=== PATIENT | male | born 2000 ===

== ENCOUNTER 2023-09-17 20:45 | Emergency (ER) | payer MEDICAID, SELFPAY ==
--- NOTE | ~2023-09-17 | XR_ITS ---
EXAMINATION: XR FINGER, RIGHT CLINICAL INFORMATION: Closed door on the third digit COMPARISON: None available. TECHNIQUE: 3 views of the right third digit FINDINGS: The bones and soft tissues are normal. No fracture. Alignment is anatomic. Joint spaces are maintained. XR/XR finger RT min 2V IMPRESSION: Normal finger radiographs.
[2023-09-17 21:40] VITALS: BP 127/76; PULSE 54; RESP 16; TEMP 36.4; O2SAT 99; BMI 27.4
--- NOTE | 2023-09-18 02:00 | ED.EXTPRO ---
HPI - Extremity Problem General Chief complaint: Extremity Injury, Upper Stated complaint: slammed finger in door, lac Time Seen by Provider: 09/18/23 01:59 Source: patient Mode of arrival: ambulatory Limitations: no limitations History of Present Illness ED Provider: Dr. Abhinav Charles HPI Narrative: 23-year-old male who presents emergency department for evaluation of injury to the 3rd finger of his left hand. Patient states he accidentally closed his finger into the door. The patient sustained a laceration to the tip of his finger involving the nail bed. Related Data Allergies Allergy/AdvReac Type Severity Reaction Status Date / Time No Known Allergies Allergy Verified 09/17/23 21:46 Review of Systems Review of Systems: Yes all other systems are reviewed and are negative PMFSH Social History Social History Advance Directives: No Advance Directives Information Provided: No Do you have a plan to hurt others: No Plan Physical Exam Vital Signs: Vital Signs: Last Vital Signs Temp 97.5 F 09/17/23 21:40 Pulse 54 09/17/23 21:40 Resp 16 09/17/23 21:40 BP 127/76 09/17/23 21:40 Pulse Ox 99 09/17/23 21:40 O2 Del Method Room Air 09/17/23 21:40 BMI result Body Mass Index 27.4 Vital signs were normal Exam: Left 3rd finger: The patient has tenderness palpation of the tip of his finger there is a laceration that goes through the nail bed and the distal part of the nail is partially avulsed. Fingers neurovascularly intact. Medications Administered Discontinued Medications Generic Name Dose Route Start Last Admin Trade Name Freq PRN Reason Stop Dose Admin Ibuprofen 400 mg 09/18/23 02:09 09/18/23 02:48 Ibuprofen 400 Mg Tablet PO 09/18/23 02:10 400 mg ONCE STA Administration Lidocaine HCl 5 ml 09/18/23 02:05 09/18/23 02:47 Lidocaine Hcl 1 % Mpf 5 Ml Vial INFILTRATI 09/18/23 02:06 5 ml ONCE STA Administration Lidocaine HCl 5 ml 09/18/23 02:22 09/18/23 02:47 Lidocaine Hcl 1 % Mpf 5 Ml Vial INFILTRATI 09/18/23 02:23 5 ml ONCE STA Administration Medical Decision Making Medical Decision Making [facility] Narrative: 23-year-old male who presents emergency department for evaluation of crush injury to the tip of his left 3rd finger. Patient a laceration across the tip of his finger that does involve the nailbed and there is partial avulsion of the fingernail. Differential diagnosis: ?Includes but is not limited to laceration to the tip of the finger, crush injury, nail bed injury, distal phalanx fracture Following evaluation was ordered: X-ray left 3rd finger/hand Patient was initially treated with the following: Ibuprofen 400 mg orally Course: 03:05 The x-ray of the right 3rd finger revealed no acute fractures. The laceration was repaired with 5.0 Rapide Vicryl sutures times a total of 6 sutures. Bacitracin was applied and a pressure dressing was applied to the tip of his finger, patient was given printed and verbal instructions and discharged home. Independent Interpretation I performed an independent interpretation of an: Plain X-Ray Interpretation: My interpretation of the patient's right hand x-ray including the right 3rd finger: No acute fracture seen Radiology Impression Discussion of test interpretation with radiology: I have reviewed the radiologist's reading. Radiologist Impression: XR finger RT min 2V IMPRESSION: Normal finger radiographs. Dictated By: Benjie Champion MD Procedures Procedure Narrative Procedure Narrative: 2.0 cm laceration to right 3rd finger involving nail bed I did discuss the repair procedure with the patient he did give me informed verbal consent to proceed. The patient's finger was prepped with Betadine and anesthetized with 10 cc of 1% lidocaine using a digital block. The proximal 3rd of the nail was removed using a scalpel to lift the nail off the nail bed and cut with scissors. The laceration did extend into the nail bed laceration and the skin laceration was repaired with 5.0 Vicryl Rapide sutures x6 sutures. The wound was then covered with bacitracin and a pressure dressing was applied. Patient tolerated the procedure well. Discharge Plan Discharge Clinical Impression: Crushing injury of finger with hand, right, Laceration of finger of right hand Patient Disposition: Home, Self-Care Instructions: Laceration (ED) Additional Instructions: The laceration of your finger was repaired with dissolvable sutures. The suture should involve in 7-10 days. If they are not completely dissolve then you can go to an urgent care clinic, your primary care doctor or the emergency department to have the sutures removed. Apply bacitracin twice a day to the wound. Watch for signs of infection which include increased pain, increased redness, red streaks going away from the wound, drainage of pus from the wound. Take ibuprofen 200 mg pills, 2 pills every 6 hours as needed for pain or fever. Take Tylenol (acetaminophen) 500 mg pills, 2 pills every 6 hours as needed for pain or fever. Follow-up with your doctor in 2 days. Please return to the emergency department if your symptoms get worse or if you develop any symptoms that are concerning to you. Print Language: Swahili
[2023-09-18] MEDS: Lidocaine HCl 1 % MPF 5 ML VIAL INFILTRATI ×2 (02:47)
[2023-09-18] MEDS: Ibuprofen 400 MG TABLET PO (02:48)
[2023-09-18] MEDS: Bacitracin Oint 0.9 GM PACKET 1 APPL TOPICAL (03:13)
[2023-09-18 03:20] VITALS: BP 118/58; PULSE 62; RESP 16; TEMP 37; O2SAT 97
== END 2023-09-18 03:21 | disposition home or self-care (01) ==
PROVIDERS: Emergency Provider Emergency Medicine Emergency Medical Services
DX: S67.192A Crushing injury of right middle finger, initial encounter (principal); S61.312A Laceration without foreign body of right middle finger with damage to nail, initial encounter; W23.0XXA Caught, crushed, jammed, or pinched between moving objects, initial encounter; Y93.9 Activity, unspecified; Y92.9 Unspecified place or not applicable; Y99.9 Unspecified external cause status
CPT/HCPCS: 12001; 73140; 99283; 99284

== ENCOUNTER 2023-11-09 20:49 | Emergency (ER) | payer MEDICAID, SELFPAY ==
--- NOTE | ~2023-11-09 | CT_ITS ---
EXAMINATION: CT ABDOMEN AND PELVIS WITH CONTRAST CLINICAL INFORMATION: Right lower quadrant pain COMPARISON: None available. TECHNIQUE: Multidetector volumetric images were obtained from the superior aspect of the liver through the pubic symphysis following administration 85 mL of Omnipaque 350 intravenous contrast. Sagittal and coronal reformatted images were obtained on the technologist's workstation. Oral contrast: No This CT examination was performed using dose optimization techniques as appropriate, variously including the following: *Automated exposure control *Adjustment of mA and/or kV according to patient size (this includes techniques or standardized protocols for targeted exams where dose is matched to indication/reason for exam; i.e. extremities or head) *Use of iterative reconstruction technique DLP: 379 mGy-cm FINDINGS: No contrast enhancement is seen on this exam. Per technologist note, contrast was injected successfully. LUNG BASES: The visualized lung bases are unremarkable. LIVER, GALLBLADDER, AND BILIARY TREE: The liver is normal in size, shape, and attenuation. No focal hepatic lesion or biliary ductal dilatation is identified on this noncontrast exam. Gallbladder appears somewhat contracted, grossly unremarkable. PANCREAS: Unremarkable. SPLEEN: Unremarkable. ADRENAL GLANDS: Unremarkable. KIDNEYS AND URETERS: No hydronephrosis or obstructing calculus bilaterally. BLADDER: Unremarkable. GASTROINTESTINAL TRACT: No evidence of bowel obstruction or significant wall thickening. Appendix appears somewhat prominent though contains gas, and there are no surrounding inflammatory changes to suggest appendicitis. No free fluid or free air is seen. ABDOMINAL WALL: No significant hernia is appreciated. LYMPH NODES: No lymphadenopathy is seen, though assessment is limited in the absence of intravenous contrast. VASCULAR: Unremarkable. PELVIC VISCERA: Unremarkable. OSSEOUS STRUCTURES: Unremarkable. CT/CT abdomen pelvis w IV con IMPRESSION: 1. Appendix appears prominent though contains gas, and there are no surrounding inflammatory changes to suggest appendicitis. Otherwise, no acute findings identified in the abdomen/pelvis. 2. Of note, no contrast is present on these images, though contrast was reportedly administered for the examination. This could be indicative of contrast infiltration, and clinical correlation with examination of the left upper extremity is recommended. This critical result was discussed with Dr. Lopez on 11/10/2023 2:16 AM, and it was ascertained that the content and urgency of the report was understood at the time of direct communication.
[2023-11-09 20:54] VITALS: BP 125/68; PULSE 59; RESP 18; TEMP 36.6; O2SAT 98; BMI 24.0
--- NOTE | 2023-11-09 21:15 | PC.NURSE ---
After triage patient states that he was seen at a hospital in [place] for similar symptoms and was sent medications which helped his pain for a while, unsure what he was taking. Patient is now out of these medications and has been trying to avoid fatty foods but the [employer] gives fatty foods for meals a lot so this has been difficult and patient is in pain again.
[2023-11-09 21:25] LABS: MANUAL DIFF FLAG NO
[2023-11-09 21:29] LABS: Basophils Percent Auto 0.5 % (0-2); Eosinophils Absolute Auto 0.4 X10*3/uL (0.0-0.4); Eosinophils Percent Auto 5.1 % (0-4); Hematocrit 43.2 % (42.0-52.0); Hemoglobin 14.6 g/dl (14.0-18.0); Imm Gran Abs Auto 0.02 X10*3/uL (0.00-0.03); Imm Gran Pct Auto 0.3 % (0.0-0.4); Lymphocytes Absolute Auto 3.4 X10*3/uL (1.2-4.9); Mean Corpuscular HGB Conc 33.8 g/dl (31.0-36.0); Mean Corpuscular Hemoglobin 28.8 pg (27.0-33.0); Mean Corpuscular Volume 85.2 fL (80.0-98.0); Mean Platelet Volume 9.8 fL (9.4-12.4); Monocytes Absolute Auto 0.4 X10*3/uL (0.1-1.2); Monocytes Percent Auto 5.8 % (2-11); Neutrophils Absolute Auto 3.3 x10*3/uL (2.0-8.3); Neutrophils Percent Auto 43.3 % (45-73); Platelet Count 207 X10*3/uL (160-400); Red Blood Count 5.07 X10*6/uL (4.60-5.80); Red Cell Distribution Width 12.7 % (11.0-16.0); White Blood Count 7.6 X10*3/uL (4.8-10.8)
[2023-11-09 21:44] LABS: Appearance Urine Clear; Color Urine Yellow; Glucose Urine UA Negative (Negative); Leukocyte Esterase Urine Negative (Negative); Nitrite Urine Negative (Negative); PH 7.5 (5.0-9.0); Urine Blood Negative (Negative); Urine Ketones Negative (Negative); Urine Protein Negative (Neg-Trace)
[2023-11-09 21:49] LABS: Bacteria Urine None Seen (None Seen); Hyaline Casts Urine 0-2 /LPF (0-2); RBC Urine 0-2 /HPF (0-2); Squamous Epithelial Cell Urine 0-2 /HPF (0-2); WBC Urine 0-5 /HPF (0-5)
[2023-11-09 21:49] LABS: Alanine Aminotransferase 6 U/L (0-40); Albumin Level 4.7 g/dL (3.5-5.0); Alkaline Phosphatase 48 U/L (39-117); Anion Gap 12 (12-20); Aspartate Amino Transferase 17 U/L (5-37); Bilirubin Direct 0.1 mg/dL (0.0-0.5); Bilirubin Total 0.4 mg/dL (0.0-1.0); Blood Urea Nitrogen 11 mg/dL (9-16); Calcium 9.7 mg/dL (8.4-10.2); Carbon Dioxide 27 mmol/L (22-29); Chloride 107 mmol/L (96-108); Creatinine Clr Calc Pharmacy 104.4; Estimated Glomerular Filt Rate > 60; Glucose Random 87 mg/dL (60-115); Lipase 24 U/L (8-78); Potassium 3.5 mmol/L (3.3-5.1); Sodium 142 mmol/L (135-145)
--- NOTE | 2023-11-09 22:04 | ED.ABDPAIN ---
HPI - Abdominal Pain General Chief Complaint: Abdominal Pain Stated Complaint: rt side pain Time Seen by Provider: 11/09/23 21:38 Source: patient Mode of arrival: ambulatory Limitations: no limitations History of Present Illness ED Provider: Dr. Leena Green HPI narrative: Patient comes to the emergency room complaining of chronic right lower quadrant pain. Patient states it has been happening for about 6 months now. Patient states that now hurts more at night, radiates towards the right lower quadrant. Patient denies any nausea vomiting diarrhea. Patient states the pain is intermittent. Denies fever chills. Patient states that he has not had any injuries to the area. Denies any hematuria or dysuria. Denies history of kidney stones. Patient states that he has noticed that when he eats bread or food with we had, patient has significant abdominal pain and distention. Related Data Previous Rx's ?Medication ?Instructions ?Recorded cyclobenzaprine 5 mg tablet 5 mg PO TID PRN muscle spasm #10 11/10/23 tabs ibuprofen 600 mg tablet 600 mg PO Q8H PRN fever or pain 11/10/23 #14 tabs Allergies Allergy/AdvReac Type Severity Reaction Status Date / Time No Known Allergies Allergy Verified 11/09/23 21:07 Review of Systems Review of Systems Constitutional : No Weight loss, No Fever, No Chills, No Night Sweats, No Fatigue, No Malaise ENT/Mouth : No Hearing loss, No Ear Pain, No Nasal Congestion, No Sinus Pain, No Hoarseness, No sore throat, No Rhinorrhea, No Swallowing Difficulty Eyes: No Eye Pain, No Swelling, No Redness, No Foreign Body, No Discharge, No Vision Changes Cardiovascular : No Chest Pain, No SOB, No Dyspnea on Exertion, No Orthopnea, No Edema, No Palpitations Respiratory : No Cough, No Sputum, No Wheezing, No Smoke Exposure, No Dyspnea Gastrointestinal : No Nausea, No Vomiting, No Diarrhea, No Constipation, complaining of right lower quadrant pain Genitourinary : no irregular bleeding, No Dysuria, No Urinary Frequency, No Hematuria, No Urinary Incontinence, No Urgency, complaining of right-sided Flank Pain, No Urinary Flow Changes, No Hesitancy Musculoskeletal : No joint pain, No Myalgias, No Joint Swelling Skin : No Skin Lesions, No rash Neuro : No Weakness, No Numbness, No Paresthesias, No Loss of Consciousness, No Dizziness, No Headache Psych : No Anxiety/Panic, No Depression, No SI/HI/AH/VH, No Social Issues, Heme/Lymph: No Bruising, No Bleeding,No Lymphadenopathy Endocrine : No Polyuria, No Polydipsia, No Temperature Intolerance [facility] Social History Social History Smoked in Last 30 Days: No Use of substances other than those prescribed or required for medical reasons: No Advance Directives: No Advance Directives Information Provided: No Do you have a plan to hurt others: No Plan Physical Exam ED Vital Signs: Vital Signs - 24 hr 11/09/23 20:54 11/09/23 22:25 11/10/23 00:00 Temperature 98 F 98.1 F 98.0 F Pulse Rate 59 60 61 Respiratory Rate 18 18 18 Blood Pressure 125/68 133/74 122/74 Pulse Oximetry 98 99 98 Oxygen Delivery Method Room Air Room Air Room Air BMI result Body Mass Index 24.0 Const Other: Appearance: Alert. Oriented X3. No acute distress. Eyes: Pupils equal, round and reactive to light. ENT: Pharynx normal. Neck: Normal inspection. Neck supple. No lymph nodes noted. No crepitus CVS: Normal heart rate and rhythm. Pulses normal. Normal S1 and S2 Respiratory: No respiratory distress. Breath sounds normal. No Wheezing. No rales Abdomen: Soft and nontender. No rigidity. No distention. My palpation to right flank Skin: Skin warm and dry. Normal skin color. Normal skin turgor. Extremities: No lower extremity edema. No Lacerations. No Rash Neuro: Oriented X 3. No motor deficit. No sensory deficit. Moving all extremities. No slurred speech. CN 2 through 12 grossly intact Psych: calm, cooperative, normal affect Medical Decision Making Medical Decision Making MDM Narrative: -my interpretation of labs: Normal hematology, no abnormality seen in the chemistry, normal lipase -urine negative for UTI -my interpretation of CT scan of abdomen and pelvis do not show any obvious abnormality. Report pending. -source of pain likely musculoskeletal -given patient's history of abdominal discomfort with food intake with wheat, I discussed with the patient to try a gluten free diet and then follow-up with gastroenterology. Differential Diagnosis Differential Diagnoses: The differential diagnosis associated with the presentation includes (Musculoskeletal pain, appendicitis, kidney stone, celiac disease) Admission/Observation Consideration of admission/observation: Escalation of care including admission/observation considered (Given patient's lack thumb symptoms, admission was considered) Lab Data MDM Lab Attestation statement: I reviewed the patient's lab results. 11/09/23 21:20 11/09/23 21:20 Labs: Lab Results 11/09/23 11/09/23 Range/Units 21:20 21:37 WBC 7.6 (4.8-10.8) X10*3/uL RBC 5.07 (4.60-5.80) X10*6/uL Hgb 14.6 (14.0-18.0) g/dl Hct 43.2 (42.0-52.0) % MCV 85.2 (80.0-98.0) fL MCH 28.8 (27.0-33.0) pg MCHC 33.8 (31.0-36.0) g/dl RDW 12.7 (11.0-16.0) % Plt Count 207 (160-400) X10*3/uL MPV 9.8 (9.4-12.4) fL Immature Gran % (Auto) 0.3 (0.0-0.4) % Neut % (Auto) 43.3 L (45-73) % Lymph % (Auto) 45.0 H (20-40) % Bracken % (Auto) 5.8 (2-11) % Eos % (Auto) 5.1 H (0-4) % Baso % (Auto) 0.5 (0-2) % Lymph # (Auto) 3.4 (1.2-4.9) X10*3/uL Bracken # (Auto) 0.4 (0.1-1.2) X10*3/uL Eos # (Auto) 0.4 (0.0-0.4) X10*3/uL Baso # (Auto) 0.0 (0.0-0.2) X10*3/uL Abs Immat Gran (auto) 0.02 (0.00-0.03) X10*3/uL Absolute Neuts (auto) 3.3 (2.0-8.3) x10*3/uL Absolute Nucleated RBC 0.000 (0.0-0.012) X10*3/uL Nucleated RBC % (auto) 0.0 (0.0-0.2) /100WBC Sodium 142 (135-145) mmol/L Potassium 3.5 (3.3-5.1) mmol/L Chloride 107 (96-108) mmol/L Carbon Dioxide 27 (22-29) mmol/L Anion Gap 12 (12-20) BUN 11 (9-16) mg/dL Creatinine 1.02 (0.5-1.4) mg/dL Estim Creat Clear Calc 104.4 Estimated GFR > 60 Random Glucose 87 (60-115) mg/dL Calcium 9.7 (8.4-10.2) mg/dL Total Bilirubin 0.4 (0.0-1.0) mg/dL Direct Bilirubin 0.1 (0.0-0.5) mg/dL AST 17 (5-37) U/L ALT 6 (0-40) U/L Alkaline Phosphatase 48 (39-117) U/L Total Protein 8.0 (6.5-8.0) g/dL Albumin 4.7 (3.5-5.0) g/dL Lipase 24 (8-78) U/L Urine Color Yellow Urine Appearance Clear Urine pH 7.5 (5.0-9.0) Ur Specific Chaplin 1.010 (1.005-1.025) Urine Protein Negative (Neg-Trace) mg/dL Urine Glucose (UA) Negative (Negative) mg/dL Urine Ketones Negative (Negative) mg/dL Urine Blood Negative (Negative) Urine Nitrite Negative (Negative) Ur Leukocyte Esterase Negative (Negative) Urine RBC 0-2 (0-2) /HPF Urine WBC 0-5 (0-5) /HPF Ur Squamous Epith Cells 0-2 (0-2) /HPF Urine Bacteria None Seen (None Seen) Hyaline Casts 0-2 (0-2) /LPF Medications Administered Discontinued Medications Generic Name Dose Route Start Last Admin Trade Name Freq PRN Reason Stop Dose Admin Iohexol 85 ml 11/10/23 01:22 11/10/23 01:23 Iohexol 350 Mg/Ml 100 Ml Infus..Btl IV 11/10/23 01:23 85 ml ONCE ONE Administration Critical Care Time Critical Care Time Critical Care Time: Yes Total Critical Care Time: 30 Attestation: I have personally provided critical care time. Time includes review of lab data, radiology results, discussion with consultants, and monitoring for potential decompensation. Intervention performed as documented. Discharge Plan Discharge Clinical Impression: Chronic abdominal pain Patient Disposition: Home, Self-Care Instructions: Gluten-Free Diet (ED), Chronic Abdominal Pain (ED) Additional Instructions: Please follow-up with your primary care physician tomorrow. If you have any worsening or new symptoms, please return to the emergency room or call 911 Prescriptions: New cyclobenzaprine 5 mg tablet 5 mg PO TID PRN (Reason: muscle spasm) Qty: 10 0RF ibuprofen 600 mg tablet 600 mg PO Q8H PRN (Reason: fever or pain) Qty: 14 0RF Referrals: Vy Garrido MD [Physician] - 11/13/23 Print Language: Finaili
[2023-11-09 22:25] VITALS: BP 133/74; PULSE 60; RESP 18; TEMP 36.7; O2SAT 99
--- NOTE | 2023-11-09 22:32 | PC.NURSE ---
RLQ pain, non reproducable. no NVD. strong steady gait. good PO intake. strong steady gait. awaits CT with IV Contrast. Is aware of plan. Screen translator/interpreter used jose miguel CASTILLO.
[2023-11-10] VITALS: BP 122/74; PULSE 61; RESP 18; TEMP 36.7; O2SAT 98
--- NOTE | 2023-11-10 00:10 | MHC.EDTECH ---
This tech took over care of patient at 2300,hourly rounds and vitals completed,patient is resting comfortably call wolf in reach
[2023-11-10] MEDS: iohexoL 350 MG/ML 100 ML INFUS..BTL 85 ML IV (01:23)
[2023-11-10 02:00] VITALS: BP 111/76; PULSE 62; RESP 18; TEMP 36.9; O2SAT 99
--- NOTE | 2023-11-10 02:27 | MHC.EDTECH ---
Hourly rounds and vitals completed,call wolf in reach
[2023-11-10 02:35] VITALS: BP 111/76; PULSE 62; RESP 18; TEMP 36.9; O2SAT 99
== END 2023-11-10 02:35 | disposition home or self-care (01) ==
PROVIDERS: Emergency Provider Emergency Medicine
DX: G89.29 Other chronic pain (principal); R10.31 Right lower quadrant pain
CPT/HCPCS: 36415; 74177; 80053; 81001; 82248; 83690; 85025; 99284; Q9967